=== PATIENT | male | born 1990 | race Hispanic/Latino ===

== ENCOUNTER 2025-02-13 16:10 | Inpatient (IN) | payer BC, SELFPAY ==
[2025-02-13] VITALS (9 sets, daily range): BP systolic 113–138; BP diastolic 62–88; RESP 4; BMI 30.1
[2025-02-13] MEDS: NARCAN 2 MG IV ×5 (13:48→14:03)
[2025-02-13] MEDS: ZOFRAN 4 MG IV (13:50)
[2025-02-13] MEDS: NARCAN 502 MG IV (14:06)
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
--- NOTE | 2025-02-13 14:36 | PHANOTE ---
Addendum entered by Kaylie Wasserman 02/13/25 14:40:
patient has no ecw records
Original Note:
med rec note- patient has no pharmacy records at this time, [facility] only has oxycodon 10mg prn filled on 01/23/25 #180. will try to call md loree burgess and jai griffith [phone]
[2025-02-13 14:44] LABS: % Basophils 0.5 % (0-2); % Eosinophils 1.4 % (0-6); % Immature Granulocytes 0.5 % (0-0.5); % Lymphocytes 15.7 % (20.5-51.1); % Monocytes 6.4 % (1.7-9.3); % Neutrophils 75.5 % (42.2-75.2); Absolute Eosinophils 0.1 10^3/uL (0-0.7); Absolute Lymphocytes 1.4 10^3/uL (1.2-3.4); Absolute Monocytes 0.6 10^3/uL (0.1-0.6); Absolute Neutrophils 6.7 10^3/uL (1.4-6.5); Hematocrit 38.7 % (39.0-52.0); Hemoglobin 13.5 g/dL (13.0-18.0); Mean Corp Hgb Conc. 34.9 g/dL (33.0-37.0); Mean Corpuscular Hgb 29.3 pg (27.0-31.0); Mean Corpuscular Volume 84.1 fL (80.0-94.0); Mean Platelet Volume 10.3 fL (7.4-10.4); Nucleated Red Blood Cells % 0 % (-); Platelet Count 173 10^3/uL (130-400); Red Cell Dist. Width 12.5 % (11.5-14.5); White Blood Cell Count 8.8 10^3/uL (4.8-10.8)
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
[2025-02-13 14:59] LABS: ALT (SGPT) 63 U/L (0-50); AST (SGOT) 37 U/L (17-59); Albumin 4.7 g/dl (3.5-5.0); Alkaline Phosphatase 91 U/L (38-126); Blood Urea Nitrogen 19 mg/dl (9-20); Calcium 9.6 mg/dl (8.4-10.2); Carbon Dioxide 23 mmol/L (22-30); Chloride 104 mmol/L (98-107); Estimated Creatinine Clearance > 125 ml/min; Glucose 125 mg/dl (70-99); Magnesium 1.9 mg/dl (1.6-2.3); Sodium 136 mmol/L (135-145); Total Bilirubin 0.8 mg/dl (0.2-1.3); Total Protein 7.2 g/dl (6.3-8.2); eGFR > 60.00
[2025-02-13 15:20] LABS: Amphetamines Negative (Negative); Barbiturates Negative (Negative); Benzodiazepines Negative (Negative); Buprenorphine Negative (Negative); Cocaine Negative (Negative); Methadone Negative (Negative); Methamphetamines Negative (Negative); Opiates Negative (Negative); Phencyclidine Negative (Negative)
[2025-02-13 15:21] LABS: Marijuana Positive (Negative); Tricyclic Antidepressants Negative (Negative)
[2025-02-13 15:43] LABS: Fentanyl, Urine Positive (Negative)
[2025-02-13] MEDS: ROXICODONE 10 MG PO ×2 (16:01→20:17)
--- NOTE | 2025-02-13 18:00 | PTCARENOTE ---
Received patient into room 3355 from the ED. Pt is aaox3, pleasant. His assessment is all within normal limits. Pt does c/o of pain to his head rates 8/10. He did receive Oxycodone in the ER. Pt ordered dinner. Pt's fiance and mother at the bedside.
VS stable.
[2025-02-13] MEDS: LOVENOX 40 MG SC (18:09)
[2025-02-13] MEDS: TYLENOL 650 MG PO (20:51)
[2025-02-13] MEDS: ATIVAN 0.5 MG IV (23:30)
[2025-02-13] MEDS: NSS (PRESERVATIVE FREE) 0.25 ML IV (23:30)
[2025-02-14] VITALS (7 sets, daily range): BP systolic 106–152; BP diastolic 81–90
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
[2025-02-14] MEDS: ROXICODONE 10 MG PO ×3 (02:24→14:36)
[2025-02-14] MEDS: TYLENOL 650 MG PO ×3 (02:25→14:37)
[2025-02-14] MEDS: ZOLOFT 50 MG PO (08:24)
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
== END 2025-02-14 15:05 | disposition home or self-care (01) | DRG 918 ==
LOC: IMU 16:10
PROVIDERS: ADMITTING PHYSICIAN Internal Medicine; ATTENDING PHYSICIAN Internal Medicine; EMERGENCY PHYSICIAN Emergency Medicine; FAMILY PHYSICIAN Family Medicine; OTHER PHYSICIAN Psychiatry & Neurology Psychiatry
DX: T40.1X1A Poisoning by heroin, accidental (unintentional), initial encounter (principal); F11.20 Opioid dependence, uncomplicated; T40.2X1A Poisoning by other opioids, accidental (unintentional), initial encounter; F41.9 Anxiety disorder, unspecified; Z87.891 Personal history of nicotine dependence; G89.29 Other chronic pain; S06.9XAD Unspecified intracranial injury with loss of consciousness status unknown, subsequent encounter; S02.85XD Fracture of orbit, unspecified, subsequent encounter for fracture with routine healing; Z79.899 Other long term (current) drug therapy
CPT/HCPCS: 80053; 80306; 80307; 83735; 85025; 93005; 96374; 96375; 99291